=== PATIENT | male | born 1965 | race Two or more races ===

== ENCOUNTER 2022-07-29 14:51 | Outpatient (REF) | payer OTHER, SELFPAY ==
[2022-07-29 16:42] LABS: Blood Urea Nitrogen 16 mg/dL (9-16); Estimated Glomerular Filt Rate 48
== END 2022-07-29 14:52 | disposition home or self-care (01) ==
LOC: HO.LAB 14:51
PROVIDERS: Visit Provider Psychiatry & Neurology Neurology
DX: I63.9 Cerebral infarction, unspecified (principal)
CPT/HCPCS: 36415; 82565; 84520

== ENCOUNTER → 2022-08-25 09:38 | Outpatient (BNVA) | payer OTHER, SELFPAY | PROVIDERS: PCP Family Medicine; Visit Provider Dietitian, Registered | DX: E11.22 Type 2 diabetes mellitus with diabetic chronic kidney disease (principal); I12.9 Hypertensive chronic kidney disease with stage 1 through stage 4 chronic kidney disease, or unspecified chronic kidney disease; N18.9 Chronic kidney disease, unspecified; E78.5 Hyperlipidemia, unspecified | CPT/HCPCS: 97802 ==

== ENCOUNTER 2022-10-28 13:59 | Outpatient (REF) | payer OTHER, SELFPAY ==
--- NOTE | ~2022-10-28 | US_ITS ---
EXAMINATION: NONINVASIVE ASSESSMENT OF THE ARTERIES OF BOTH LOWER EXTREMITIES WITH PVR EXAM AND RIGHT LOWER EXTREMITY DUPLEX Yaneth Zhou MD CLINICAL INFORMATION: Peripheral arterial disease TECHNIQUE: Ankle pulse volume recordings, ankle pressure measurements and ankle brachial indices were obtained of the lower extremity arterial system bilaterally in addition to duplex Doppler techniques with wave form analysis and measurement of velocities in the right common femoral, profunda femoral, superficial femoral, popliteal and tibial arteries. The study was performed only at rest. COMPARISON: None FINDINGS: a) AT REST: RIGHT LE. The right ankle-brachial index is: 0.98 * >0.97-1.25 = normal - no significant arterial disease * 0.75-0.96 = mild peripheral arterial disease * 0.5-0.74 = moderate peripheral arterial disease * <0.50 = severe peripheral arterial disease 2. Right ankle pressure: normal. 3. Right ankle PVR waveform: normal. 4. Right direct duplex Doppler findings: Common femoral artery: 129 cm/s, Multiphasic Profunda femoris artery: 97 cm/s, Multiphasic Superficial femoral artery (proximal): 95 cm/s, Multiphasic Superficial femoral artery (mid): 99 cm/s, Multiphasic Superficial femoral artery (distal): 88 cm/s, Multiphasic Proximal Popliteal artery: 66 cm/s, Multiphasic Mid posterior tibial artery: 116 cm/s, Multiphasic LEFT LE. The left ankle-brachial index is: 1.08 * >0.97-1.25 = normal - no significant arterial disease * 0.75-0.96 = mild peripheral arterial disease * 0.5-0.74 = moderate peripheral arterial disease * <0.50 = severe peripheral arterial disease 2. Left ankle pressure: normal. 3. Left ankle PVR waveform: normal. US/US arterial duplex LE RT IMPRESSION: There is no evidence of any hemodynamically significant lower extremity arterial disease by pressure, waveform or duplex Doppler criteria at rest.
--- NOTE | ~2022-10-28 | US_ITS ---
EXAMINATION: NONINVASIVE ASSESSMENT OF THE ARTERIES OF BOTH LOWER EXTREMITIES WITH PVR EXAM AND RIGHT LOWER EXTREMITY DUPLEX Yaneth Zhou MD CLINICAL INFORMATION: Peripheral arterial disease TECHNIQUE: Ankle pulse volume recordings, ankle pressure measurements and ankle brachial indices were obtained of the lower extremity arterial system bilaterally in addition to duplex Doppler techniques with wave form analysis and measurement of velocities in the right common femoral, profunda femoral, superficial femoral, popliteal and tibial arteries. The study was performed only at rest. COMPARISON: None FINDINGS: a) AT REST: RIGHT LE. The right ankle-brachial index is: 0.98 * >0.97-1.25 = normal - no significant arterial disease * 0.75-0.96 = mild peripheral arterial disease * 0.5-0.74 = moderate peripheral arterial disease * <0.50 = severe peripheral arterial disease 2. Right ankle pressure: normal. 3. Right ankle PVR waveform: normal. 4. Right direct duplex Doppler findings: Common femoral artery: 129 cm/s, Multiphasic Profunda femoris artery: 97 cm/s, Multiphasic Superficial femoral artery (proximal): 95 cm/s, Multiphasic Superficial femoral artery (mid): 99 cm/s, Multiphasic Superficial femoral artery (distal): 88 cm/s, Multiphasic Proximal Popliteal artery: 66 cm/s, Multiphasic Mid posterior tibial artery: 116 cm/s, Multiphasic LEFT LE. The left ankle-brachial index is: 1.08 * >0.97-1.25 = normal - no significant arterial disease * 0.75-0.96 = mild peripheral arterial disease * 0.5-0.74 = moderate peripheral arterial disease * <0.50 = severe peripheral arterial disease 2. Left ankle pressure: normal. 3. Left ankle PVR waveform: normal. US/US RAFAEL complete IMPRESSION: There is no evidence of any hemodynamically significant lower extremity arterial disease by pressure, waveform or duplex Doppler criteria at rest.
== END 2022-10-28 14:00 | disposition home or self-care (01) ==
LOC: HO.US 13:59
PROVIDERS: PCP Family Medicine; Visit Provider Psychiatry & Neurology Neurology
DX: I73.9 Peripheral vascular disease, unspecified (principal)
CPT/HCPCS: 93923; 93926

== ENCOUNTER 2024-03-14 09:19 | Outpatient (AMB) | payer OTHER, SELFPAY ==
--- NOTE | 2024-03-14 09:21 | A.OFFVIS_ITS ---
Vital Signs 03/14/24 09:35 Height 6 ft Weight 312 lb 8 oz BMI 42.4 BP 140/86 H Blood Pressure Location Lt radial Position Sitting Respiration 18 Pulse 71 Pulse Source Pulse Oximeter Pulse Oximetry (%) 93 Oxygen Delivery Method Room Air Intake Visit Reasons: leg pain and weakness/ nerve impingement Intake Note: Patient comes in for initial visit was referred by [facility] of [facility]. Reports pain 10/10. Allergies No Known Allergies Allergy (Verified 08/02/22 09:13) HPI Comments Details: Mr. Truong is very pleasant 59 years old gentleman who presents in my office with complains on pain in right anterior thigh. He reports his pain is 9 to 10/10. He reports that this pain started 1 year ago. He reports weakness on the left side the painful site is right side. He also reports constant dizziness after the stroke. He is under care of Dr. Suárez after the stroke. He is on permanent disability because of the stroke. He can not sleep normally can not do activities of daily living he can not take care of himself but he can not function normally because of his stroke. He is unable to ambulate without assistance. He needs a cane from time to time he needs walker and when his condition is worse he needs wheelchair. His pain is most severe during the daytime. In terms of tissue damage he reports his pain is stabbing, pinching, cramping, crushing,, hurting, heavy, tiring, exhausting, tight, squeezing, tearing sensation. She had physical therapy to treat his pain but it only aggravate his pain. He had MRI of the lumbar spine which diagnose him with spinal stenosis. The brief note of the MRI was included into the referral note however unfortunately it was not very clear due to fax malfunction. He received unknown injections in the knee and in the back and he reports that back injection was very effective to control his pain. He reports medical history of hypertension, diabetes type 2 and history of stroke, he is on Plavix currently, he is under care of stock roller with loop recorder. So there are some issues with his heart obviously. He denies any liver issues however he has chronic renal insufficiency of unknown stage. Past surgical history significant for broken leg surgery at the age of 53 years old and appendectomy at 9 years old. Social history he is disabled individual denies smoking cigarettes denies drinking alcohol drinks soda as caffeinated beverages and denies recreational drugs. PFSH Family History (Updated 08/02/22 @ 09:16 by ABIGAIL Trevino) Mother Hypertension Father Myocardial infarction Social History (Updated 08/02/22 @ 09:15 by ABIGAIL Trevino) Alcohol intake: never Patient Tobacco Use Status: Never used Tobacco Review of Systems Const Denies fatigue, Denies weight gain and Denies weight loss Eyes Denies blurry vision ENT Reports Normal hearing present and Denies sore throat Card Denies dyspnea Resp Denies cough and Denies dyspnea GI Denies constipation and Denies diarrhea Denies dysuria and Denies urinary frequency Musc Reports as per HPI Neuro Reports as per HPI, Reports Normal hearing present, Denies confusion and Reports Sensory deficit (Neuro) Psych Reports abnormal sleep pattern, Denies confusion and Denies depression Endo Denies fatigue Physical Exam Const General: no acute distress; No confusion Nutritional Appearance: obese morbidly obese Orientation/consciousness: patient oriented x3 and No confusion Eyes General: appearance normal, both eyes and all related structures EOM: EOMs intact bilaterally Neck Neck: Yes full ROM Chest Chest palpation & inspection: normal inspection of the chest Resp Effort & Inspection: normal respiratory effort, able to speak in complete sentences, normal respiratory pattern, no audible wheezes and no cough Cardio Jugular venous distension: no JVD GI Inspection: Yes normal to inspection Neuro General: patient oriented x3, No gait normal and No confusion Cranial nerves: Yes Normal hearing present Gait exam (Neuro): gait abnormal, Shuffling gait present and Assisted gait required Gait assisted method: wheelchair bound, walker and walking stick Sensory Exam: Sensory deficit (Neuro) Extrem General: No pedal edema Psych Speech and movement: Normal speech and movement present Affect: normal affect Attitude: cooperative Thought process: Normal thought process present Thought content: Normal thought content present Insight: Good insight present (Psych) Judgement: Good judgement present (Psych) Results Reviewed Results Reviewed: CLINICAL INFORMATION: Peripheral arterial disease TECHNIQUE: Ankle pulse volume recordings, ankle pressure measurements and ankle brachial indices were obtained of the lower extremity arterial system bilaterally in addition to duplex Doppler techniques with wave form analysis and measurement of velocities in the right common femoral, profunda femoral, superficial femoral, popliteal and tibial arteries. The study was performed only at rest. COMPARISON: None FINDINGS: a) AT REST: RIGHT LE. The right ankle-brachial index is: 0.98 * >0.97-1.25 = normal - no significant arterial disease * 0.75-0.96 = mild peripheral arterial disease * 0.5-0.74 = moderate peripheral arterial disease * <0.50 = severe peripheral arterial disease 2. Right ankle pressure: normal. 3. Right ankle PVR waveform: normal. 4. Right direct duplex Doppler findings: Common femoral artery: 129 cm/s, Multiphasic Profunda femoris artery: 97 cm/s, Multiphasic Superficial femoral artery (proximal): 95 cm/s, Multiphasic Superficial femoral artery (mid): 99 cm/s, Multiphasic Superficial femoral artery (distal): 88 cm/s, Multiphasic Proximal Popliteal artery: 66 cm/s, Multiphasic Mid posterior tibial artery: 116 cm/s, Multiphasic LEFT LE. The left ankle-brachial index is: 1.08 * >0.97-1.25 = normal - no significant arterial disease * 0.75-0.96 = mild peripheral arterial disease * 0.5-0.74 = moderate peripheral arterial disease * <0.50 = severe peripheral arterial disease 2. Left ankle pressure: normal. 3. Left ankle PVR waveform: normal. US/US arterial duplex LE RT IMPRESSION: There is no evidence of any hemodynamically significant lower extremity arterial disease by pressure, waveform or duplex Doppler criteria at rest. Assessment & Plan Assessment & Plan (1) CKD (chronic kidney disease): Code(s): N18.9 - Chronic kidney disease, unspecified Category: Medical (2) HTN (hypertension): Code(s): I10 - Essential (primary) hypertension Category: Medical (3) Right leg pain: Code(s): M79.604 - Pain in right leg Category: Medical (4) Spinal stenosis: Code(s): M48.00 - Spinal stenosis, site unspecified Category: Medical Plan This patient is suffering from spinal stenosis, he reports that he received injection from [facility] pain management results of which were ?amazing ?. Unfortunately the description of the MRI in his referral note is not very clear to read because of the fax malfunction. I will request MRI description from [facility] radiology. I will request the nature of the injection from [facility] pain management. The results of the vascular diagnostic tests are negative for vascular insufficiency in bilateral lower extremities. See as above. I will be able to repeat the procedures he received at [facility] pain [facility] to help his pain again. Patient Instructions: I here by testify that I spent 45 minutes in conversation with this patient as well as planning his care examining his diagnostic studies and organizing this note. Coding Level of Care Code New Pt Level 4 (85756) Diagnoses CKD (chronic kidney disease) N18.9 HTN (hypertension) I10 Right leg pain M79.604 Spinal stenosis M48.00
[2024-03-14 09:35] VITALS: BP 140/86; PULSE 71; RESP 18; O2SAT 93; BMI 42.4
== END 2024-03-14 09:57 | disposition home or self-care (01) ==
PROVIDERS: PCP Family Medicine; Visit Provider Anesthesiology
DX: I12.9 Hypertensive chronic kidney disease with stage 1 through stage 4 chronic kidney disease, or unspecified chronic kidney disease (principal); N18.9 Chronic kidney disease, unspecified; M79.604 Pain in right leg; M48.00 Spinal stenosis, site unspecified
CPT/HCPCS: 99204

== ENCOUNTER → 2024-03-14 09:19 | Outpatient (BNVA) | payer OTHER, SELFPAY | PROVIDERS: PCP Family Medicine; Visit Provider Anesthesiology | DX: I12.9 Hypertensive chronic kidney disease with stage 1 through stage 4 chronic kidney disease, or unspecified chronic kidney disease (principal); N18.9 Chronic kidney disease, unspecified; M79.604 Pain in right leg; M48.00 Spinal stenosis, site unspecified | CPT/HCPCS: 99202 ==

== ENCOUNTER 2024-03-28 09:47 | Outpatient (AMB) | payer OTHER, SELFPAY ==
--- NOTE | 2024-03-28 09:49 | MHC.OFFVIS ---
Vital Signs 03/28/24 10:31 Height 6 ft Weight 320 lb BMI 43.4 BP 158/90 H Blood Pressure Location Lt brachial Position Sitting Respiration 18 Pulse 108 H Pulse Source Pulse Oximeter Pulse Oximetry (%) 96 Oxygen Delivery Method Room Air Intake Visit Reasons: 2 Week Follow Up Intake Note: Patient comes in for 2 weeks follow up. Reports pain 10/10. Allergies No Known Allergies Allergy (Verified 03/28/24 10:26) HPI Comments Details: Mr. Truong is back in my office 2 weeks after initial exam. He stated that he had MRI at [facility], he had injections at [facility] which were ?amazing ?. We were trying to obtain information from [facility] about his MRI or about those injections. Unfortunately we were not able to find any information about it. He is not listed at [facility] pain [facility] as the patient. There is no MRI available for this patient at the [facility] as well. The patient reports that his pain today is unbearable and he wants to go to the hospital. I told him that maybe he will go to the hospital his diagnostic studies will be done sooner. I offered him to prescribe muscle relaxants to help his pain. I will start him on tizanidine 2 mg t.i.d.. I will send him for the MRI of the lumbar spine in this facility and I will see him in 5 weeks from today when MRI will be read and ready. Prior: pain in right anterior thigh. He reports his pain is 9 to 10/10. He reports that this pain started 1 year ago. He reports weakness on the left side the painful site is right side. He also reports constant dizziness after the stroke. He is under care of Dr. Suárez after the stroke. He is on permanent disability because of the stroke. He can not sleep normally can not do activities of daily living he can not take care of himself but he can not function normally because of his stroke. He is unable to ambulate without assistance. He needs a cane from time to time he needs walker and when his condition is worse he needs wheelchair. His pain is most severe during the daytime. She had physical therapy to treat his pain but it only aggravate his pain. He reports medical history of hypertension, diabetes type 2 and history of stroke, he is on Plavix currently, he is under care of market research analyst with loop recorder. So there are some issues with his heart obviously. He denies any liver issues however he has chronic renal insufficiency of unknown stage. PFSH Family History (Updated 08/02/22 @ 09:16 by ABIGAIL Trevino) Mother Hypertension Father Myocardial infarction Social History (Updated 08/02/22 @ 09:15 by ABIGAIL Trevino) Alcohol intake: never Patient Tobacco Use Status: Never used Tobacco Review of Systems Const All systems reviewed & are unremarkable except as noted in HPI and below ENT Reports Normal hearing present Neuro Reports Normal hearing present, Denies confusion and Reports Sensory deficit (Neuro) Psych Denies confusion Physical Exam Vital Signs: Last Vital Signs Pulse 108 H 03/28/24 10:31 Resp 18 03/28/24 10:31 BP 158/90 H 03/28/24 10:31 Pulse Ox 96 03/28/24 10:31 Oxygen Delivery Method Room Air 03/28/24 10:31 BMI result Body Mass Index 43.4 Const General: no acute distress; No confusion Nutritional Appearance: obese morbidly obese Orientation/consciousness: patient oriented x3 and No confusion Eyes General: appearance normal, both eyes and all related structures EOM: EOMs intact bilaterally Neck Neck: Yes full ROM Chest Chest palpation & inspection: normal inspection of the chest Resp Effort & Inspection: normal respiratory effort, able to speak in complete sentences, normal respiratory pattern, no audible wheezes and no cough Cardio Jugular venous distension: no JVD GI Inspection: Yes normal to inspection Neuro General: patient oriented x3, No gait normal and No confusion Cranial nerves: Yes Normal hearing present Gait exam (Neuro): gait abnormal, Shuffling gait present and Assisted gait required Gait assisted method: wheelchair bound, walker and walking stick Sensory Exam: Sensory deficit (Neuro) Extrem General: No pedal edema Psych Speech and movement: Normal speech and movement present Affect: normal affect Attitude: cooperative Thought process: Normal thought process present Thought content: Normal thought content present Insight: Good insight present (Psych) Judgement: Good judgement present (Psych) Results Reviewed Results Reviewed: CLINICAL INFORMATION: Peripheral arterial disease TECHNIQUE: Ankle pulse volume recordings, ankle pressure measurements and ankle brachial indices were obtained of the lower extremity arterial system bilaterally in addition to duplex Doppler techniques with wave form analysis and measurement of velocities in the right common femoral, profunda femoral, superficial femoral, popliteal and tibial arteries. The study was performed only at rest. COMPARISON: None FINDINGS: a) AT REST: RIGHT LE. The right ankle-brachial index is: 0.98 * >0.97-1.25 = normal - no significant arterial disease * 0.75-0.96 = mild peripheral arterial disease * 0.5-0.74 = moderate peripheral arterial disease * <0.50 = severe peripheral arterial disease 2. Right ankle pressure: normal. 3. Right ankle PVR waveform: normal. 4. Right direct duplex Doppler findings: Common femoral artery: 129 cm/s, Multiphasic Profunda femoris artery: 97 cm/s, Multiphasic Superficial femoral artery (proximal): 95 cm/s, Multiphasic Superficial femoral artery (mid): 99 cm/s, Multiphasic Superficial femoral artery (distal): 88 cm/s, Multiphasic Proximal Popliteal artery: 66 cm/s, Multiphasic Mid posterior tibial artery: 116 cm/s, Multiphasic LEFT LE. The left ankle-brachial index is: 1.08 * >0.97-1.25 = normal - no significant arterial disease * 0.75-0.96 = mild peripheral arterial disease * 0.5-0.74 = moderate peripheral arterial disease * <0.50 = severe peripheral arterial disease 2. Left ankle pressure: normal. 3. Left ankle PVR waveform: normal. US/US arterial duplex LE RT IMPRESSION: There is no evidence of any hemodynamically significant lower extremity arterial disease by pressure, waveform or duplex Doppler criteria at rest. Assessment & Plan Assessment & Plan (1) CKD (chronic kidney disease): Code(s): N18.9 - Chronic kidney disease, unspecified Category: Medical (2) HTN (hypertension): Code(s): I10 - Essential (primary) hypertension Category: Medical (3) Right leg pain: Code(s): M79.604 - Pain in right leg Category: Medical (4) Spinal stenosis: Code(s): M48.00 - Spinal stenosis, site unspecified Category: Medical Plan Because of the misnformation this patient provided to us during his 1st appointment 2 weeks we lost for his workup. He is not listed as the patient of pain management at [facility] pain management. We also do not know where his MRI was done. He is complaining on pain in the right leg and anterior thigh. I need to start his workup somewhere. I will send him for the MRI of the lumbar spine. I will start him on tizanidine 2 mg t.i.d. to help his pain. I will see him in 5 weeks after his MRI is ready. He states that because of his pain is so severe he wants to go to the hospital. Maybe in the hospital they will make a quick a workup and evaluate his pain than it is available in ambulatory setting. Orders: Orders MR lumbar spine wo con Today M48.00 - Spinal stenosis, site unspecified, M79.604 - Pain in right leg Medications: New tizanidine 2 mg PO TID PRN 90 tabs 4RF muscle spasticity 30 days Patient Instructions: I here by testify that I spent 35 minutes in conversation with this patient as well as trying to find diagnostic studies of this patient as well as planning his care and organizing this note. Coding Level of Care Code Est Pt Level 4 (71207) Diagnoses CKD (chronic kidney disease) N18.9 HTN (hypertension) I10 Right leg pain M79.604 Spinal stenosis M48.00
[2024-03-28 10:31] VITALS: BP 158/90; PULSE 108; RESP 18; O2SAT 96; BMI 43.4
== END 2024-03-28 10:22 | disposition home or self-care (01) ==
PROVIDERS: PCP Family Medicine; Visit Provider Anesthesiology
DX: N18.9 Chronic kidney disease, unspecified (principal); I12.9 Hypertensive chronic kidney disease with stage 1 through stage 4 chronic kidney disease, or unspecified chronic kidney disease; M79.604 Pain in right leg; M48.00 Spinal stenosis, site unspecified
CPT/HCPCS: 99214

== ENCOUNTER → 2024-03-28 09:47 | Outpatient (BNVA) | payer OTHER, SELFPAY | PROVIDERS: PCP Family Medicine; Visit Provider Anesthesiology | DX: I12.9 Hypertensive chronic kidney disease with stage 1 through stage 4 chronic kidney disease, or unspecified chronic kidney disease (principal); N18.9 Chronic kidney disease, unspecified; M79.604 Pain in right leg; M48.00 Spinal stenosis, site unspecified | CPT/HCPCS: 99212 ==